=== PATIENT | female | born 1995 | race Caucasian/White ===

== ENCOUNTER 2020-12-01 14:21 | Emergency (ER) | payer OTHER ==
--- OUTSIDE RECORDS SUMMARY | 2020-12-01 14:23 | XMS REPORT | Continuity of Care Document ---
:1995 Author Organization [facility] t Address [address] [place] [address] Care Team Providers Name Role Phone Julissa PERDUE, G Attending Clinician Unavailable Lab, Fam Pob I Attending Clinician Unavailable Problems This patient has no known problems. Allergies, Adverse Reactions, Alerts This patient has no known allergies or adverse reactions. Medications This patient has no known medications. Procedures This patient has no known procedures. Encounters Start End Encounter Admission Attending Care Care Encounter Source Date/Time Date/Time Type Type Clinicians Facility Department ID 2020-03-08 2020-03-08 Telephone Bret SANCHEZ [id number] 00:00:00 00:00:00 Yeni douglas [id number] [facility] [id number] 2020-03-05 2020-03-05 Laboratory Lab, [facility] [id number] 08:15:59 08:35:59 Only Fam Pob I [facility] [id number] [employer] [id number] [facility] [phone] [address] Results This patient has no known results.
[2020-12-01] MEDS ORDERED: METOCLOPRAMIDE 10 MG/2mL INJ ONE (15:31)
[2020-12-01] MEDS ORDERED: DIPHENHYDRAMINE 50 MG/ML VIAL ONE (15:32)
[2020-12-01] MEDS ORDERED: NA CHLORIDE 0.9% 1,000 ML ONE (15:32)
[2020-12-01] MEDS ORDERED: KETOROLAC 30 MG/ML INJ ONE (15:32)
--- NOTE | 2020-12-01 15:39 | RAD REPORT ---
EXAM DESCRIPTION: CT - Head Brain Wo Cont - 12/01/2020 3:32 pm CLINICAL HISTORY: Headache COMPARISON: None. TECHNIQUE: Computed axial tomography of the head was obtained. IV contrast was not requested. All CT scans are performed using dose optimization technique as appropriate and may include automated exposure control or mA/KV adjustment according to patient size. FINDINGS: An intracranial bleed is not seen . The ventricles are normal in caliber. No extra-axial fluid collection is noted. Fluid within the sinuses/ mastoids is not seen. IMPRESSION: No acute intracranial abnormality is seen. If patient's symptoms persist MRI of the bra in would be recommended.
[2020-12-01 15:46] LABS: Basophils % 0.4 % (0-1.3); Hematocrit 40.9 % (36.0-45.0); Lymphocytes % 27.6 % (15.3-44.8); MPV 7.5 fL (7.6-11.3); RBC Red Blood Cell Count 4.86 M/uL (3.86-4.86)
[2020-12-01 15:55] LABS: ALT/SGPT 37 U/L (12-78); AST/SGOT 14 U/L (15-37); Albumin 3.8 g/dL (3.4-5.0); Alkaline Phosphatase 116 U/L (45-117); BUN Blood Urea Nitrogen 14 mg/dL (7-18); Bicarbonate 28 mmol/L (21-32); Bilirubin Total 0.4 mg/dL (0.2-1.0); Glucose Level 87 mg/dL (74-106); Potassium 3.9 mmol/L (3.5-5.1); Protein, Total 8.5 g/dL (6.4-8.2); Sodium Level 138 mmol/L (136-145)
--- NOTE | 2020-12-01 16:23 | ER ---
Nurse's Notes [facility] Name: Korey Galeano Age: 25 yrs Sex: Female : 1995 Arrival Date: 12/01/2020 Time: 14:24 Bed 5 Private MD: Diagnosis: Migraine without aura Presentation: 12/01 14:32 Chief complaint: Patient states: Was at work and had flashing lights in her vision with ll1 both eyes, even with eyes closed. Then started getting dizzy, N/V. Then bad JOHN started. Flashing lights gone now. Coronavirus screen: Client denies travel out of the [place] in the last 14 days. headache, Client presents with at least one sign or symptom that may indicate coronavirus-19. Standard/surgical mask placed on the client. Ebola Screen: Patient denies travel to an Ebola-affected area in the 21 days before illness onset. Initial Sepsis Screen: Does the patient meet any 2 criteria? No. Patient's initial sepsis screen is negative. Does the patient have a suspected source of infection? Yes: Other: JOHN. Risk Assessment: Do you want to hurt yourself or someone else? Patient reports no desire to harm self or others. Onset of symptoms was December 01, 2020. 14:32 Method Of Arrival: Ambulatory ll1 14:32 Acuity: MIGUEL 3 ll1 Historical: - Allergies: 14:37 No Known Allergies; ll1 - PMHx: 14:37 Migraines; never officially diagnosed; ll1 - PSHx: 14:37 None; ll1 - Immunization history:: Client reports receiving the 1st dose of the Covid vaccine, Flu vaccine is up to date. - Social history:: Smoking status: Patient denies any tobacco usage or history of. Patient/guardian denies using alcohol, street drugs, The patient lives with family. - Family history:: not pertinent. Screenin:54 Abuse screen: Denies threats or abuse. Nutritional screening: No deficits noted. tw2 Tuberculosis screening: No symptoms or risk factors identified. Fall Risk None identified. Assessment: 15:27 Reassessment: pt reports " i get these episodes i guess where i give myself a panic tw2 attack and i just have to calm myself down, but i guess this time i just freaked myself out, so since i saw the spots i just came in". General: Appears in no apparent distress. obese, well groomed, Behavior is anxious. Pain: Complains of pain in headache. Neuro: Level of Consciousness is awake, alert, obeys commands, Oriented to person, place, Reports headache. Cardiovascular: Patient's skin is warm and dry. Respiratory: Airway is patent Respiratory effort is even, unlabored, Respiratory pattern is regular, symmetrical. GI: No signs and/or symptoms were reported involving the gastrointestinal system. Abdomen is round non-distended. : No signs and/or symptoms were reported regarding the genitourinary system. EENT: No signs and/or symptoms were reported regarding the EENT system. Derm: No signs and/or symptoms reported regarding the dermatologic system. Musculoskeletal: Range of motion: intact in all extremities. 15:27 Neuro: Reports headache "similar headaches since i was 17 but they are not all the tw2 time". Vital Signs: 14:32 BP 144 / 101; Pulse 89; Resp 17; Temp 98.5; Pulse Ox 98% on R/A; Weight 99.79 kg; ll1 Height 5 ft. 6 in. (167.64 cm); Pain 4/10; 16:33 BP 109 / 71; Pulse 61; Resp 17; Pulse Ox 99% on R/A; tw2 14:32 Body Mass Index 35.51 (99.79 kg, 167.64 cm) ll1 Candace Coma Score: 15:34 Eye Response: spontaneous(4). Verbal Response: oriented(5). Motor Response: obeys ma2 commands(6). Total: 15. ED Course: 14:24 Patient arrived in ED. mr 14:36 Triage completed. ll1 14:37 Arm band placed on. ll1 14:51 Hiral Soni, RN is Primary Nurse. tw2 14:53 Patient placed in an exam room, on a stretcher. ll1 14:54 Bed in low position. Call light in reach. Pulse ox on. NIBP on. tw2 15:05 Obey Bravo MD is Attending Physician. ma2 15:27 Inserted saline lock: 20 gauge in right antecubital area, using aseptic technique. tw2 Blood collected. 15:32 CT Head Brain wo Cont In Process Unspecified. EDMS 16:34 No provider procedures requiring assistance completed. IV discontinued, intact, tw2 bleeding controlled, No redness/swelling at site. Pressure dressing applied. Administered Medications: 15:27 Drug: NS 0.9% 1000 ml Route: IV; Rate: 1 bolus; Site: right antecubital; tw2 16:33 Follow up: Response: No adverse reaction; IV Status: Order to discontinue infusion; IV tw2 Intake: 600ml 15:27 Drug: Reglan 10 mg Route: IVP; Site: right antecubital; tw2 16:33 Follow up: Response: No adverse reaction; Pain is decreased tw2 15:30 Drug: TORadol 30 mg Route: IVP; Site: right antecubital; tw2 16:33 Follow up: Response: No adverse reaction; Pain is decreased tw2 15:30 Drug: Benadryl (diphenhydrAMINE) 12.5 mg Route: IVP; Site: right antecubital; tw2 16:33 Follow up: Response: No adverse reaction tw2 Intake: 16:33 IV: 600ml; Total: 600ml. tw2 Outcome: 16:22 Discharge ordered by . ma2 16:34 Discharged to home ambulatory. tw2 16:34 Condition: stable 16:34 Discharge instructions given to patient, Instructed on discharge instructions, follow up and referral plans. medication usage, Demonstrated understanding of instructions, follow-up care, medications, Prescriptions given X 2. 16:34 Patient left the ED. tw2 Signatures: Dispatcher [employer] REGICO Ruth Ann Kaiser Tara, RN RN tw2 Obey Bravo MD MD ma2 Chula Tolbert RN RN ll1
--- NOTE | 2020-12-01 16:23 | EDPHYS ---
Physician Documentation [facility] Name: Korey Galeano Age: 25 yrs Sex: Female : 1995 Arrival Date: 12/01/2020 Time: 14:24 Bed 5 Private MD: ED Physician Obey Bravo HPI: 12/01 15:34 This 25 yrs old Female presents to ER via Ambulatory with complaints of ma2 Headache, Vision Problem. 15:34 The patient complains of pain to the forehead. Onset: The symptoms/episode ma2 began/occurred gradually, 1 day(s) ago. Severity of symptoms: At its worst the pain was mild, in the emergency department the pain is unchanged. Headache History: The patient has had previous headaches and this one is similar to previous episodes. gradual headache. Historical: - Allergies: 14:37 No Known Allergies; ll1 - PMHx: 14:37 Migraines; never officially diagnosed; ll1 - PSHx: 14:37 None; ll1 - Immunization history:: Client reports receiving the 1st dose of the Covid vaccine, Flu vaccine is up to date. - Social history:: Smoking status: Patient denies any tobacco usage or history of. Patient/guardian denies using alcohol, street drugs, The patient lives with family. - Family history:: not pertinent. ROS: 15:34 Constitutional: Negative for fever, chills, and weight loss. ma2 15:34 All other systems are negative. Exam: 15:34 Constitutional: This is a well developed, well nourished patient who is awake, alert, ma2 and in no acute distress. ENT: Nares patent. No nasal discharge, no septal abnormalities noted. Tympanic membranes are normal and external auditory canals are clear. Oropharynx with no redness, swelling, or masses, exudates, or evidence of obstruction, uvula midline. Mucous membranes moist. Neck: Trachea midline, no thyromegaly or masses palpated, and no cervical lymphadenopathy. Supple, full range of motion without nuchal rigidity, or vertebral point tenderness. No Meningismus. Chest/axilla: Normal chest wall appearance and motion. Nontender with no deformity. No lesions are appreciated. Cardiovascular: Regular rate and rhythm with a normal S1 and S2. No gallops, murmurs, or rubs. Normal PMI, no JVD. No pulse deficits. Respiratory: Lungs have equal breath sounds bilaterally, clear to auscultation and percussion. No rales, rhonchi or wheezes noted. No increased work of breathing, no retractions or nasal flaring. Abdomen/GI: Soft, non-tender, with normal bowel sounds. No distension or tympany. No guarding or rebound. No evidence of tenderness throughout. Skin: Warm, dry with normal turgor. Normal color with no rashes, no lesions, and no evidence of cellulitis. MS/ Extremity: Pulses equal, no cyanosis. Neurovascular intact. Full, normal range of motion. Neuro: Awake and alert, GCS 15, oriented to person, place, time, and situation. Cranial nerves II-XII grossly intact. Motor strength 5/5 in all extremities. Sensory grossly intact. Cerebellar exam normal. Normal gait. Vital Signs: 14:32 BP 144 / 101; Pulse 89; Resp 17; Temp 98.5; Pulse Ox 98% on R/A; Weight 99.79 kg; ll1 Height 5 ft. 6 in. (167.64 cm); Pain 4/10; 16:33 BP 109 / 71; Pulse 61; Resp 17; Pulse Ox 99% on R/A; tw2 14:32 Body Mass Index 35.51 (99.79 kg, 167.64 cm) ll1 Candace Coma Score: 15:34 Eye Response: spontaneous(4). Verbal Response: oriented(5). Motor Response: obeys vt2 commands(6). Total: 15. MDM: 15:05 Patient medically screened. vt2 15:34 Differential diagnosis: hypoglycemia, migraine, tension headache. vt2 16:22 Data reviewed: vital signs, nurses notes. Counseling: I had a detailed discussion with ma2 the patient and/or guardian regarding: the historical points, exam findings, and any diagnostic results supporting the discharge/admit diagnosis, the presence of at least one elevated blood pressure reading (>120/80) during this emergency department visit, the need for outpatient follow up. Response to treatment: the patient's symptoms have markedly improved after treatment. 12/01 15:09 Order name: CBC with Diff; Complete Time: 16:22 [facility] 12/01 15:09 Order name: CMP; Complete Time: 16: [facility] 12/01 15:09 Order name: CT Head Brain wo Cont; Complete Time: 15:40 ma2 12/01 15:11 Order name: IV Start; Complete Time: 15:30 tw2 Administered Medications: 15:27 Drug: NS 0.9% 1000 ml Route: IV; Rate: 1 bolus; Site: right antecubital; tw2 16:33 Follow up: Response: No adverse reaction; IV Status: Order to discontinue infusion; IV tw2 Intake: 600ml 15:27 Drug: Reglan 10 mg Route: IVP; Site: right antecubital; tw2 16:33 Follow up: Response: No adverse reaction; Pain is decreased tw2 15:30 Drug: TORadol 30 mg Route: IVP; Site: right antecubital; tw2 16:33 Follow up: Response: No adverse reaction; Pain is decreased tw2 15:30 Drug: Benadryl (diphenhydrAMINE) 12.5 mg Route: IVP; Site: right antecubital; tw2 16:33 Follow up: Response: No adverse reaction tw2 Disposition: 12/01/20 16:22 Discharged to Home. Impression: Migraine without aura. - Condition is Stable. - Discharge Instructions: Migraine Headache. - Prescriptions for Reglan 10 mg Oral Tablet - take 1 tablet by ORAL route every 6 hours take 30 minutes before meals and at bedtime; 20 tablet. Diclofenac Sodium 75 mg Oral Tablet Sustained Release - take 1 tablet by ORAL route 2 times per day; 30 tablet. - Work release form, Medication Reconciliation Form, Thank You Letter, Antibiotic Education, Prescription Opioid Use form. - Follow up: Private Physician; When: Tomorrow; Reason: Continuance of care. Signatures: Dispatcher [employer] Hiral Mcarthur RN RN tw2 Obey Bravo MD MD ma2 Chula Tolbert RN RN ll1 Corrections: (The following items were deleted from the chart) 16:34 16:22 12/01/2020 16:22 Discharged to Home. Impression: Migraine without aura. Condition tw2 is Stable. Prescriptions for Reglan 10 mg Oral Tablet - take 1 tablet by ORAL route every 6 hours take 30 minutes before meals and at bedtime; 20 tablet, Diclofenac Sodium 75 mg Oral Tablet Sustained Release - take 1 tablet by ORAL route 2 times per day; 30 tablet. and Forms are Work release form, Medication Reconciliation Form, Thank You Letter, Antibiotic Education, Prescription Opioid Use. Follow up: Private Physician; When: Tomorrow; Reason: Continuance of care. ma2
[2020-12-01 16:39] VITALS: TEMP 98.5
[2020-12-01 16:40] VITALS: BP 109/71; O2SAT 99
== END 2020-12-01 16:34 | disposition home or self-care (01) ==
LOC: ER 14:21
DX: G43.009 Migraine without aura, not intractable, without status migrainosus (principal)
CPT/HCPCS: 85025; 36415; 80053; 70450; J2765; J1200; J7030; 96361; 96374; 96375; 99284